=== PATIENT | male | born 1990 | race Caucasian/White ===

== ENCOUNTER 2018-10-15 05:04 | Emergency (ER) | payer OTHER ==
[~2018-10-15] VITALS: Ht 170.2 cm; Wt 106.6 kg
[~2018-10-15 05:04] MED LIST: FLOVENT; NORCO 5-325 TA1 EACH PO; PROAIR HFA8.5 GM; PROTONIX40 MG PO; ZOFRAN ODT4 MG PO
[2018-10-15] MEDS ORDERED: IBUPROFEN 400400 M2 PO (05:18)
[2018-10-15] MEDS ORDERED: AUGMENTIN 875-1 EACH PO (05:18)
[2018-10-15 05:41] VITALS: BP 142/107
== END 2018-10-15 05:41 | disposition home or self-care (01) ==
LOC: ER 05:04
DX: L03.211 Cellulitis of face (principal); F17.210 Nicotine dependence, cigarettes, uncomplicated; F90.9 Attention-deficit hyperactivity disorder, unspecified type; J45.909 Unspecified asthma, uncomplicated; Z88.5 Allergy status to narcotic agent